=== PATIENT | female | born 1955 | race Caucasian/White ===

== ENCOUNTER 2024-04-12 08:24 | Inpatient (IN) | payer OTHER ==
[~2024-04-12] VITALS: Ht 167.6 cm; Wt 69.2 kg
[2024-04-12] MEDS: dilTIAZem 25 MG/5 ML VIAL IV ONE ×2 (08:38→08:54)
[2024-04-12] MEDS: dilTIAZem 125mg/125ml BAG KIT 125 ML IV ONE (08:53)
[2024-04-12 09:00] VITALS: PULSE 136; O2SAT 95
[2024-04-12] MEDS: ASPirin 81 mg TAB PO ONE (09:16)
[2024-04-12] MEDS: LORazepam 2MG/ML-1ML VIAL IV ONE ×3 (09:17→13:15)
[2024-04-12 09:26] LABS: Basophils # (auto) 0 10 ^3/uL (0-0.2); Basophils % (auto) 0.4 % (0.0-2.0); Eosinophils # (auto) 0 10 ^3/uL (0-0.8); Eosinophils % (auto) 0.2 % (0.0-7.0); Hematocrit 39.8 % (36.0-46.0); Hemoglobin 13.7 g/dL (12.2-16.2); Lymphocytes % (auto) 15.4 % (10.0-50.0); Mean Corpuscular Hemoglobin 39.9 pg (28.0-32.0); Mean Corpuscular Hgb Conc. 34.4 g/dL (32.0-36.0); Monocytes # (auto) 0.7 10 ^3/uL (0-1.3); Monocytes % (auto) 11.5 % (0.0-12.0); Neutrophils # (auto) 4.5 10 ^3/uL (1.6-8.6); Neutrophils % (auto) 72.5 % (37.0-80.0); Nucleated Red Blood Cells % 0.1 %; Platelet Count (auto) 144 10^3/uL (140-450); Red Blood Cells 3.43 10^6/uL (4.0-5.20); White Blood Cell 6.2 10^3/uL (4.4-10.8)
[2024-04-12 09:56] LABS: Alanine Aminotransferase 94 U/L (7-40); Albumin 3.6 g/dL (3.2-4.8); Alkaline Phosphatase 115 U/L (46-116); Anion Gap 7 (5-15); Aspartate Aminotransferase 140 U/L (13-40); BUN/Creatinine Ratio 34.4 (10.0-20.0); Blood Urea Nitrogen 21 mg/dL (9-23); Calcium 8.6 mg/dL (8.7-10.4); Carbon Dioxide 23 mmol/L (20-30); Chloride 97 mmol/L (98-107); Glucose 87 mg/dL (74-106); Magnesium 1.5 mg/dL (1.6-2.6); Potassium 2.8 mmol/L (3.5-5.1); Sodium 127 mmol/L (136-145)
[2024-04-12 09:57] LABS: Bilirubin, Total 2.3 mg/dL (0.2-1.0); Total Protein 6.5 g/dL (5.7-8.2)
[2024-04-12 10:10] LABS: COVID19 ANTIGEN SOFIA FIA NEGATIVE (NEGATIVE)
[2024-04-12] MEDS: POTASSIUM CHL 20MEQ/100ML 100 ML IV ONE (12:10)
[2024-04-12] MEDS ORDERED: ACETAMINOPHEN 325 MG TAB PO PRN (14:15)
[2024-04-12] MEDS ORDERED: HYDROcodone-ACET 5/325MG TAB PO PRN (14:15)
[2024-04-12] MEDS ORDERED: ONDANSETRON HCL 4 MG/2 ML VIAL IV PRN (14:15)
[2024-04-12] MEDS ORDERED: LORazepam 2MG/ML-1ML VIAL IV PRN (14:15)
[2024-04-12] MEDS ORDERED: DOCUSATE SOD 100 MG CAP PO PRN (14:15)
[2024-04-12] MEDS ORDERED: IBUPROFEN 600 MG TAB PO PRN (14:30)
[2024-04-12] MEDS ORDERED: NITROGLYCERIN 0.4 MG SL TAB SL PRN (15:15)
[2024-04-12] MEDS ORDERED: MORPHINE SULFATE INJ 2 MG/ml SYRG IV PRN (15:15)
[2024-04-12] MEDS: chlordiazePOXIDE HCL 25 MG CAP PO SCH (16:13)
[2024-04-12] MEDS: LORazepam 2MG/ML-1ML VIAL IV PRN (16:15)
[2024-04-12] MEDS: LORazepam 2MG/ML-1ML VIAL ONE (16:15)
[2024-04-12] MEDS: POTASSIUM CHL 20MEQ/100ML 100 ML IV SCH (16:22)
[2024-04-12] MEDS: AMIODARONE 450mg/250ml AE 250 ML IV SCH ×2 (16:30→22:34)
[2024-04-12] MEDS: AZITHROMYCIN 500MG/ 250ML 250 ML IV ONE (16:55)
[2024-04-12] MEDS: FOLIC ACID 1 MG, MAGNESIUM SULF SDV 50% 8 MEQ, MULTIPLE VITAMIN 10 ML, THIAMINE INJ 100... INJ SCH (20:22)
[2024-04-13] VITALS (16 sets, daily range): BP systolic 129–164; BP diastolic 65–141; PULSE 116–143; RESP 15–37; TEMP 98.2; O2SAT 92–100
[2024-04-13 06:27] LABS: Alanine Aminotransferase 87 U/L (7-40); Alkaline Phosphatase 106 U/L (46-116); Anion Gap 9 (5-15); BUN/Creatinine Ratio 27.7 (10.0-20.0); Blood Urea Nitrogen 13 mg/dL (9-23); Calcium 8.3 mg/dL (8.7-10.4); Carbon Dioxide 21 mmol/L (20-30); Chloride 99 mmol/L (98-107); Glucose 90 mg/dL (74-106); Potassium 2.9 mmol/L (3.5-5.1); Sodium 129 mmol/L (136-145)
[2024-04-13 06:28] LABS: Albumin 3.4 g/dL (3.2-4.8); Aspartate Aminotransferase 108 U/L (13-40); Total Protein 6.5 g/dL (5.7-8.2)
[2024-04-13 07:18] LABS: Basophils # (auto) 0 10 ^3/uL (0-0.2); Basophils % (auto) 0.3 % (0.0-2.0); Eosinophils # (auto) 0 10 ^3/uL (0-0.8); Lymphocytes # (auto) 0.8 10 ^3/uL (0.4-5.4)
[2024-04-13 07:19] LABS: Eosinophils % (auto) 0.4 % (0.0-7.0); Hematocrit 38.7 % (36.0-46.0); Hemoglobin 13.2 g/dL (12.2-16.2); Lymphocytes % (auto) 12.3 % (10.0-50.0); Mean Corpuscular Hemoglobin 39.9 pg (28.0-32.0); Mean Corpuscular Hgb Conc. 34.1 g/dL (32.0-36.0); Mean Corpuscular Volume 117.2 fL (80.0-100.0); Monocytes # (auto) 0.6 10 ^3/uL (0-1.3); Monocytes % (auto) 10.4 % (0.0-12.0); Neutrophils # (auto) 4.8 10 ^3/uL (1.6-8.6); Neutrophils % (auto) 76.6 % (37.0-80.0); Platelet Count (auto) 136 10^3/uL (140-450); Red Cell Distribution Width 14.3 % (11.8-14.3); White Blood Cell 6.3 10^3/uL (4.4-10.8)
[2024-04-13] MEDS: SODIUM CHLORIDE 0.9% 500 ML IV ONE (08:33)
[2024-04-13] MEDS: SODIUM CHLORIDE 0.9% 1,000 ML IV SCH (08:51)
[2024-04-13] MEDS: POTASSIUM CHL 20MEQ/100ML 100 ML IV SCH (08:51)
[2024-04-13 08:58] LABS: Phosphorus 3.4 mg/dL (2.4-5.1)
[2024-04-13 09:02] LABS: INR 1.07 (0.9-1.15); Partial Thromboplastin Time 25.1 SEC (24.5-34.5); Prothrombin Time 11.3 sec (9.3-11.8)
[2024-04-13 09:29] LABS: Amphetamine Screen, Urine Neg (NEGATIVE); Barbiturate Scree,Urine Neg (NEGATIVE); Benzodiazephine Screen, Urine Pos (NEGATIVE); Cocaine Screen, Urine Neg (NEGATIVE); Opiate Scree,Urine Neg (NEGATIVE)
[2024-04-13 09:30] LABS: Cannabinoid Screen, Urine Neg (NEGATIVE); Phencyclidine Screen, Urine Neg (NEGATIVE)
[2024-04-13] MEDS ORDERED: AZITHROMYCIN 500MG/ 250ML 250 ML IV SCH (10:00)
[2024-04-13] MEDS: SODIUM CHLORIDE 0.9% 1,000 ML IV ONE (10:32)
[2024-04-13] MEDS: IOHEXOL 350 MG/ML 100ML IJ ONE (10:33)
[2024-04-13] MEDS: ASPirin 81 mg TAB PO SCH (10:34)
[2024-04-13] MEDS: POTASSIUM CHLORIDE 20 MEQ in D5W/LACTATED RINGERS 1,000 ML IV SCH (12:30)
[2024-04-13] MEDS: PANTOPRAZOLE 40 MG/10 ML VIAL INJ IV ONE (13:13)
[2024-04-13] MEDS: AMIODARONE BOLUS KIT 100 ML IV ONE (13:13)
[2024-04-13] MEDS: AMIODARONE 450mg/250ml AE 250 ML IV SCH ×2 (13:31→18:37)
[2024-04-13] MEDS: PIPERACILLIN-TAZOB 3.375GM 100 ML IV ONE (14:21)
[2024-04-13] MEDS: ENOXAPARIN SOD 100 MG/1 ML SYRINGE SC ONE (15:29)
[2024-04-13] MEDS: MAGNESIUM SULFATE 1GM/100ML 100 ML IV ONE (15:29)
[2024-04-13] MEDS: LORazepam 2MG/ML-1ML VIAL IV PRN (17:39)
[2024-04-13 19:49] LABS: Alanine Aminotransferase 85 U/L (7-40); Albumin 3.1 g/dL (3.2-4.8); Alkaline Phosphatase 104 U/L (46-116); Anion Gap 8 (5-15); Aspartate Aminotransferase 99 U/L (13-40); BUN/Creatinine Ratio 17.1 (10.0-20.0); Bilirubin, Total 1.9 mg/dL (0.2-1.0); Blood Urea Nitrogen 7 mg/dL (9-23); Calcium 7.9 mg/dL (8.7-10.4); Carbon Dioxide 19 mmol/L (20-30); Chloride 101 mmol/L (98-107); Glucose 100 mg/dL (74-106); Potassium 3.4 mmol/L (3.5-5.1); Sodium 128 mmol/L (136-145); Total Protein 6.2 g/dL (5.7-8.2)
[2024-04-13] MEDS: ENOXAPARIN SOD 100 MG/1 ML SYRINGE SC SCH (21:58)
[2024-04-13] MEDS: PIPERACILLIN-TAZOB 3.375GM 100 ML IV SCH (21:59)
[2024-04-14] VITALS (49 sets, daily range): BP systolic 115–158; BP diastolic 51–105; PULSE 110–158; RESP 15–40; TEMP 97.7–98.4; O2SAT 88–98
[2024-04-14] MEDS ORDERED: LORazepam 2MG/ML-1ML VIAL IV PRN (00:15)
[2024-04-14 04:59] LABS: Basophils # (auto) 0 10 ^3/uL (0-0.2); Eosinophils # (auto) 0 10 ^3/uL (0-0.8); Lymphocytes # (auto) 0.7 10 ^3/uL (0.4-5.4); Monocytes # (auto) 0.7 10 ^3/uL (0-1.3); Nucleated Red Blood Cells % 0.1 %; White Blood Cell 6.6 10^3/uL (4.4-10.8)
[2024-04-14 05:01] LABS: Basophils % (auto) 0.4 % (0.0-2.0); Eosinophils % (auto) 0.7 % (0.0-7.0); Hematocrit 42.4 % (36.0-46.0); Hemoglobin 14.4 g/dL (12.2-16.2); Lymphocytes % (auto) 11.1 % (10.0-50.0); Mean Corpuscular Hemoglobin 40.8 pg (28.0-32.0); Monocytes % (auto) 11.1 % (0.0-12.0); Neutrophils # (auto) 5.1 10 ^3/uL (1.6-8.6); Neutrophils % (auto) 76.7 % (37.0-80.0); Platelet Count (auto) 149 10^3/uL (140-450); Red Blood Cells 3.53 10^6/uL (4.0-5.20)
[2024-04-14] MEDS: dilTIAZem 25 MG/5 ML VIAL IV ONE (05:06)
[2024-04-14 05:19] LABS: Alanine Aminotransferase 82 U/L (7-40); Alkaline Phosphatase 110 U/L (46-116); Anion Gap 6 (5-15); Aspartate Aminotransferase 81 U/L (13-40); BUN/Creatinine Ratio 16.7 (10.0-20.0); Blood Urea Nitrogen 7 mg/dL (9-23); Calcium 7.9 mg/dL (8.7-10.4); Carbon Dioxide 20 mmol/L (20-30); Chloride 103 mmol/L (98-107); Glucose 143 mg/dL (74-106); Magnesium 2.2 mg/dL (1.6-2.6); Potassium 3.6 mmol/L (3.5-5.1); Sodium 129 mmol/L (136-145)
[2024-04-14 05:20] LABS: Albumin 3.1 g/dL (3.2-4.8); Bilirubin, Total 2.3 mg/dL (0.2-1.0); Phosphorus 2.2 mg/dL (2.4-5.1); Total Protein 5.9 g/dL (5.7-8.2)
[2024-04-14] MEDS: PANTOPRAZOLE 40 MG/10 ML VIAL INJ IV SCH (09:51)
[2024-04-14] MEDS: POTASSIUM CHL 20MEQ/100ML 100 ML IV SCH (09:57)
[2024-04-14] MEDS ORDERED: LABETALOL HCL 20 MG/4 ML VL IV PRN (10:15)
[2024-04-14] MEDS: POTASSIUM CHLORIDE 20 MEQ in D5W/LACTATED RINGERS 1,000 ML IV SCH (10:15)
[2024-04-14] MEDS: METOPROLOL TARTRATE 1MG/1ML-5ML VIAL IV ONE (11:05)
[2024-04-14 14:46] LABS: Urine Bacteria None Seen /hpf (None Seen)
[2024-04-14 15:06] LABS: Urine Blood 3+ /uL (Negative); Urine Clarity Ex.Turbid (Clear); Urine Color Dark-Brown (Yellow); Urine Mucus FEW (None Seen); Urine Protein, UAD 1+ (Negative); Urine Specific Gravity 1.027 (1.001-1.035); Urine Urobilinogen 3 mg/dL (Negative); Urine WBC 307 /hpf (0 - 5); Urine pH 5.5 (5.0-9.0)
[2024-04-15] VITALS (29 sets, daily range): BP systolic 121–158; BP diastolic 40–106; PULSE 99–142; RESP 15–35; TEMP 97.7–98.3; O2SAT 89–100
[2024-04-15 04:58] LABS: Eosinophils # (auto) 0 10 ^3/uL (0-0.8); Lymphocytes # (auto) 0.7 10 ^3/uL (0.4-5.4); Neutrophils # (auto) 3.4 10 ^3/uL (1.6-8.6); Platelet Count (auto) 165 10^3/uL (140-450)
[2024-04-15 05:00] LABS: Basophils # (auto) 0 10 ^3/uL (0-0.2); Basophils % (auto) 0.8 % (0.0-2.0); Eosinophils % (auto) 0.7 % (0.0-7.0); Hematocrit 37.3 % (36.0-46.0); Hemoglobin 13.1 g/dL (12.2-16.2); Lymphocytes % (auto) 14.8 % (10.0-50.0); Mean Corpuscular Hgb Conc. 35.2 g/dL (32.0-36.0); Mean Corpuscular Volume 116.7 fL (80.0-100.0); Monocytes # (auto) 0.7 10 ^3/uL (0-1.3); Monocytes % (auto) 13.8 % (0.0-12.0); Neutrophils % (auto) 69.9 % (37.0-80.0); Nucleated Red Blood Cells % 0.1 %; Red Blood Cells 3.19 10^6/uL (4.0-5.20); Red Cell Distribution Width 13.6 % (11.8-14.3); White Blood Cell 4.9 10^3/uL (4.4-10.8)
[2024-04-15 05:14] LABS: Alanine Aminotransferase 58 U/L (7-40); Albumin 2.9 g/dL (3.2-4.8); Alkaline Phosphatase 95 U/L (46-116); Anion Gap 7 (5-15); Aspartate Aminotransferase 43 U/L (13-40); Calcium 7.6 mg/dL (8.7-10.4); Carbon Dioxide 20 mmol/L (20-30); Chloride 102 mmol/L (98-107); Glucose 105 mg/dL (74-106); Potassium 3.3 mmol/L (3.5-5.1); Sodium 129 mmol/L (136-145)
[2024-04-15 05:15] LABS: Bilirubin, Total 2.1 mg/dL (0.2-1.0); Total Protein 5.8 g/dL (5.7-8.2)
[2024-04-15 05:17] LABS: BUN/Creatinine Ratio 13.2 (10.0-20.0); Blood Urea Nitrogen < 5 mg/dL (9-23)
[2024-04-15] MEDS: ALBUTEROL SULF 2.5 MG/0.5ML(0.5%) NEB SOLN NEB ONE (06:57)
[2024-04-15] MEDS: ALBUTEROL SULF 2.5 MG/0.5ML(0.5%) NEB SOLN ONE (06:57)
[2024-04-15] MEDS: GADOTERATE MEG 10 MMOL/20ml INJ (0.5MMOL/ml) IV ONE (07:16)
[2024-04-15] MEDS: METOPROLOL SUCCINATE XL 50 MG TAB PO SCH (08:44)
[2024-04-15] MEDS ORDERED: METOPROLOL SUCCINATE XL 50 MG TAB PO SCH (10:00)
[2024-04-15] MEDS: POTASSIUM CHL 20 Meq TABLET PO ONE (10:54)
[2024-04-15] MEDS: METOPROLOL SUCCINATE XL 50 MG TAB PO ONE (10:55)
[2024-04-15] MEDS: DIGOXIN (250MCG/ML) 2 ML AMPULE IV ONE (10:56)
[2024-04-15] MEDS: PIPERACILLIN-TAZOB 3.375GM 100 ML IV SCH (22:32)
[2024-04-16] VITALS (27 sets, daily range): BP systolic 112–159; BP diastolic 68–100; PULSE 84–126; RESP 14–35; TEMP 97.7–98.6; O2SAT 94–100
[2024-04-16 05:30] LABS: Basophils # (auto) 0.1 10 ^3/uL (0-0.2); Basophils % (auto) 1.2 % (0.0-2.0); Eosinophils # (auto) 0.1 10 ^3/uL (0-0.8); Lymphocytes # (auto) 0.9 10 ^3/uL (0.4-5.4); Mean Corpuscular Hemoglobin 40.3 pg (28.0-32.0); Mean Corpuscular Hgb Conc. 34.9 g/dL (32.0-36.0); Neutrophils # (auto) 3.2 10 ^3/uL (1.6-8.6); Red Cell Distribution Width 13.8 % (11.8-14.3); White Blood Cell 4.9 10^3/uL (4.4-10.8)
[2024-04-16 05:34] LABS: Eosinophils % (auto) 1.3 % (0.0-7.0); Hematocrit 36.9 % (36.0-46.0); Hemoglobin 12.9 g/dL (12.2-16.2); Lymphocytes % (auto) 18.2 % (10.0-50.0); Mean Corpuscular Volume 115.6 fL (80.0-100.0); Monocytes # (auto) 0.6 10 ^3/uL (0-1.3); Monocytes % (auto) 13.2 % (0.0-12.0); Neutrophils % (auto) 66.1 % (37.0-80.0); Platelet Count (auto) 234 10^3/uL (140-450)
[2024-04-16 05:49] LABS: Chloride 103 mmol/L (98-107); Potassium 3.5 mmol/L (3.5-5.1); Sodium 133 mmol/L (136-145)
[2024-04-16 05:50] LABS: Anion Gap 6 (5-15); Calcium 8.1 mg/dL (8.7-10.4); Carbon Dioxide 24 mmol/L (20-30)
[2024-04-16 05:55] LABS: Glucose 95 mg/dL (74-106)
[2024-04-16 05:56] LABS: Magnesium 1.9 mg/dL (1.6-2.6)
[2024-04-16 06:01] LABS: BUN/Creatinine Ratio 11.9 (10.0-20.0); Blood Urea Nitrogen < 5 mg/dL (9-23)
[2024-04-16] MEDS: METOPROLOL SUCCINATE XL 50 MG TAB PO SCH (09:14)
[2024-04-16] MEDS: THIAMINE 100mg/ml INJ (200mg/2ml VIAL) IV SCH (09:15)
[2024-04-16] MEDS: FOLIC ACID 1 MG in D5W 5% 50 ML INJ SCH (09:21)
[2024-04-16] MEDS: APIXABAN 5 MG TAB PO SCH (21:37)
[2024-04-16] MEDS: HYALURONIDASE 150 UNIT/1 ML SUBCUT ONE (23:49)
[2024-04-17] VITALS (23 sets, daily range): BP systolic 123–164; BP diastolic 62–96; PULSE 98–128; RESP 14–32; TEMP 98–99.3; O2SAT 91–100
[2024-04-17 05:27] LABS: Alanine Aminotransferase 41 U/L (7-40); Albumin 2.8 g/dL (3.2-4.8); Alkaline Phosphatase 84 U/L (46-116); Anion Gap 5 (5-15); Aspartate Aminotransferase 32 U/L (13-40); BUN/Creatinine Ratio 11.1 (10.0-20.0); Bilirubin, Total 1.1 mg/dL (0.2-1.0); Blood Urea Nitrogen < 5 mg/dL (9-23); Calcium 8.4 mg/dL (8.7-10.4); Carbon Dioxide 24 mmol/L (20-30); Chloride 103 mmol/L (98-107); Glucose 96 mg/dL (74-106); Magnesium 1.8 mg/dL (1.6-2.6); Potassium 3.5 mmol/L (3.5-5.1); Sodium 132 mmol/L (136-145); Total Protein 5.6 g/dL (5.7-8.2)
[2024-04-17] MEDS ORDERED: LORazepam 2MG/ML-1ML VIAL IV PRN (12:00)
[2024-04-17] MEDS: chlordiazePOXIDE HCL 5 MG CAP PO PRN (12:23)
[2024-04-17] MEDS: METOPROLOL TARTRATE 50 MG TAB PO SCH (21:56)
[2024-04-18] VITALS (18 sets, daily range): BP systolic 119–168; BP diastolic 42–100; PULSE 90–129; RESP 13–30; TEMP 97.6–99.8; O2SAT 91–100
[2024-04-18] MEDS: AMIODARONE HCL 200 MG TAB PO ONE (10:31)
[2024-04-18] MEDS: AMIODARONE HCL 200 MG TAB PO SCH (21:47)
[2024-04-19] VITALS (13 sets, daily range): BP systolic 126–162; BP diastolic 62–88; PULSE 87–130; RESP 18–28; TEMP 97.6–98.7; O2SAT 83–98
[2024-04-19 05:28] LABS: Anion Gap 7 (5-15); Carbon Dioxide 26 mmol/L (20-30); Chloride 101 mmol/L (98-107); Potassium 3.4 mmol/L (3.5-5.1); Sodium 134 mmol/L (136-145)
[2024-04-19 05:30] LABS: Calcium 8.5 mg/dL (8.7-10.4)
[2024-04-19 05:34] LABS: BUN/Creatinine Ratio 13.5 (10.0-20.0); Blood Urea Nitrogen 7 mg/dL (9-23); Glucose 94 mg/dL (74-106)
[2024-04-19 05:35] LABS: Magnesium 1.8 mg/dL (1.6-2.6)
[2024-04-19] MEDS: LOSARTAN POTASSIUM 50 MG TAB PO ONE (12:22)
[2024-04-19] MEDS: MAGNESIUM SULFATE 1GM/100ML 100 ML IV SCH (12:23)
[2024-04-19] MEDS: POTASSIUM CHL 20 Meq TABLET PO ONE (12:23)
[2024-04-20] VITALS (8 sets, daily range): BP systolic 89–119; BP diastolic 53–77; PULSE 96–117; RESP 15–18; TEMP 97.3–99.6; O2SAT 93–98
[2024-04-20 05:58] LABS: Basophils # (auto) 0.1 10 ^3/uL (0-0.2); Eosinophils # (auto) 0.1 10 ^3/uL (0-0.8); Eosinophils % (auto) 1.2 % (0.0-7.0); Neutrophils # (auto) 7.6 10 ^3/uL (1.6-8.6)
[2024-04-20 06:01] LABS: Basophils % (auto) 1.3 % (0.0-2.0); Hematocrit 35.2 % (36.0-46.0); Hemoglobin 12.7 g/dL (12.2-16.2); Lymphocytes # (auto) 1.2 10 ^3/uL (0.4-5.4); Lymphocytes % (auto) 12.3 % (10.0-50.0); Mean Corpuscular Hemoglobin 41.2 pg (28.0-32.0); Mean Corpuscular Hgb Conc. 36.1 g/dL (32.0-36.0); Mean Corpuscular Volume 114.3 fL (80.0-100.0); Monocytes # (auto) 0.7 10 ^3/uL (0-1.3); Monocytes % (auto) 7.6 % (0.0-12.0); Neutrophils % (auto) 77.6 % (37.0-80.0); Nucleated Red Blood Cells % 0.1 %; Platelet Count (auto) 398 10^3/uL (140-450); Red Blood Cells 3.08 10^6/uL (4.0-5.20); Red Cell Distribution Width 13.9 % (11.8-14.3); White Blood Cell 9.8 10^3/uL (4.4-10.8)
[2024-04-20 06:03] LABS: Chloride 103 mmol/L (98-107); Potassium 3.8 mmol/L (3.5-5.1); Sodium 133 mmol/L (136-145)
[2024-04-20 06:04] LABS: Anion Gap 3 (5-15); Carbon Dioxide 27 mmol/L (20-30)
[2024-04-20 06:10] LABS: BUN/Creatinine Ratio 13.2 (10.0-20.0); Blood Urea Nitrogen 7 mg/dL (9-23); Calcium 8.3 mg/dL (8.7-10.4); Glucose 95 mg/dL (74-106); Magnesium 2.1 mg/dL (1.6-2.6)
[2024-04-20] MEDS: FOLIC ACID 1 MG TAB PO SCH (10:00)
[2024-04-20] MEDS: THIAMINE HCL 100 MG TAB PO SCH (10:00)
[2024-04-20] MEDS ORDERED: LOSARTAN POTASSIUM 50 MG TAB PO SCH (10:00)
[2024-04-20] MEDS: SPIRONOLACTONE 25 MG TAB PO SCH (10:54)
[2024-04-20] MEDS: levoFLOXacin 500 MG TAB PO SCH (10:54)
[2024-04-20] MEDS: FUROSEMIDE 20 MG TAB PO SCH (10:55)
[2024-04-21 01:00] VITALS: BP 120/73; PULSE 99; RESP 16; TEMP 98.6; O2SAT 94
[2024-04-21 05:00] VITALS: BP 129/81; PULSE 114; RESP 15; TEMP 99; O2SAT 94
[2024-04-21 05:10] LABS: Anion Gap 7 (5-15); Carbon Dioxide 23 mmol/L (20-30); Chloride 101 mmol/L (98-107); Potassium 4.1 mmol/L (3.5-5.1); Sodium 131 mmol/L (136-145)
[2024-04-21 05:16] LABS: Glucose 84 mg/dL (74-106)
[2024-04-21 05:19] LABS: BUN/Creatinine Ratio 8.9 (10.0-20.0); Blood Urea Nitrogen < 5 mg/dL (9-23)
[2024-04-21] MEDS: PANTOPRAZOLE 40 MG TAB PO SCH (05:46)
[2024-04-21 08:00] VITALS: PULSE 112; PULSE 114; RESP 18; O2SAT 94
[2024-04-21] MEDS ORDERED: APIX5TAB PO (08:56)
[2024-04-21] MEDS ORDERED: SPIR25TA PO (08:56)
[2024-04-21] MEDS ORDERED: PANT40T PO (08:56)
[2024-04-21] MEDS ORDERED: MET50T PO (08:56)
[2024-04-21] MEDS ORDERED: THIA100T10 PO (08:56)
[2024-04-21] MEDS ORDERED: FURO20TA4 PO (08:56)
[2024-04-21] MEDS ORDERED: AMIO200T13 PO (08:56)
[2024-04-21 09:00] VITALS: BP_SYST 132; BP_SYST 95; BP_DIAS 56; BP_DIAS 76; PULSE 114; PULSE 79; RESP 18; RESP 20; TEMP 98.1; O2SAT 94; O2SAT 96
[2024-04-21 12:14] VITALS: BP 106/58; PULSE 115; TEMP 36.7
[2024-04-21 13:00] VITALS: BP 104/37; PULSE 107; RESP 22; TEMP 98.1; O2SAT 95
== END 2024-04-21 13:50 | disposition home or self-care (01) | DRG 871 ==
LOC: ER 08:24 → EDBD 08:24 → TELE 15:15 → DOU IN ICU 04-13 21:00 → TELE-CENTR 04-19 19:05
PROVIDERS: ADMIT Nurse Practitioner Family; ATTEND Internal Medicine
PROC: 5A09357 Assistance with Respiratory Ventilation, Less than 24 Consecutive Hours, Continuous Positive Airway Pressure (ICD-10-PCS; principal; 2024-04-14)
DX: A41.9 Sepsis, unspecified organism (principal); G92.8 Other toxic encephalopathy; I50.23 Acute on chronic systolic (congestive) heart failure; J96.20 Acute and chronic respiratory failure, unspecified whether with hypoxia or hypercapnia; J69.0 Pneumonitis due to inhalation of food and vomit; I48.20 Chronic atrial fibrillation, unspecified; F10.230 Alcohol dependence with withdrawal, uncomplicated; E87.1 Hypo-osmolality and hyponatremia; D68.69 Other thrombophilia; E44.0 Moderate protein-calorie malnutrition; Z20.822 Contact with and (suspected) exposure to COVID-19; E83.42 Hypomagnesemia; D32.9 Benign neoplasm of meninges, unspecified; D69.6 Thrombocytopenia, unspecified; Y90.9 Presence of alcohol in blood, level not specified; K70.9 Alcoholic liver disease, unspecified; E87.6 Hypokalemia; G93.9 Disorder of brain, unspecified; Z79.01 Long term (current) use of anticoagulants; Z68.24 Body mass index [BMI] 24.0-24.9, adult
CPT/HCPCS: 36415; 70450; 70490; 70553; 71045; 71275; 76705; 80048; 80053; 80307; 80320; 81001; 82140; 82550; 82607; 82746; 83735; 83880; 83935; 84100; 84300; 84443; 84484; 85025; 85379; 85610; 85730; 87081; 87426; 93005; 93306; 93971; 94640; 94660; 97110; 97116; 97163; 97530; 99291; G0378; J2470; J2543; J3470; J3480; J7060